=== PATIENT | female | born 1945 | race African-American/Black ===

== ENCOUNTER 2020-03-23 14:47 | Emergency (ER) | payer OTHER ==
[~2020-03-23] VITALS: Ht 167.6 cm; Wt 122.5 kg
[~2020-03-23 14:47] MED LIST: ACCUNEB SO1.25 MG/1; ACETAMINOP160 MG/12 PO; ACETAMINOPHEN325 MG; ASPIR 8181 MG; ATORVASTATIN CA40 MG PO; AUGMENTIN 875875 MG PO; CALCIUM 600 +1 EAC1; CATAPRES-TTS 20.2 MG TRANSDERM; CATAPRESS3; COLACE 100 MG100 MG PO; COUMADIN7.5 MG; DUONEB 2.5-0.5 M3 ML INH; FAMOTIDINE10 MG/1 ML IV; FLONASE 0.05%50 MCG; IRON325; KEPPRA 500 MG500 M1 PO; KLOR-CON 1010 MEQ; LABETALOL 100100 MG PO; LAMICTAL100 MG PO; LAMOTRIGINE100 MG PO; LASIX 20 MG TAB20 MG; LEXAPRO20 MG PO; LIPITOR 10 MG10 M1; LISINOPRIL20 MG PO; MILK OF MA2400 MG/10 PO; MOBIC15 MG PO; MUCINEX TA600 MG/TA2 PO; MULTIVITAMINS; NATURAL BALANCE15 ML; NORVASC5 MG PO; NOVOLOG100 UNIT/1 SUBQ; OMEGA-31000 M1; ONDANSETRON HCL4 M2 IV; OXYCODONE HCL 55 MG; PRILOSEC20 MG; SENEXON8.6 MG; VITAMIN C500 M1; ZOLOFT50 MG; ZYPREXA 5 MG TAB5 M1 PO; ZYRTEC10 MG
[2020-03-23 16:58] LABS: ABSOLUTE NEUTROPHILS 4.5 thou/uL (1.4-8.2); BASOPHILS 0.5 % (0.0-2.0); EOSINOPHILS 4.8 % (0.0-3.0); HEMATOCRIT 40.8 % (37.0-47.0); HEMOGLOBIN 13.8 gm/dL (12.0-15.0); LYMPHOCYTES 46.3 % (24.0-44.0); MCH 31.2 pg (26.0-34.0); MCHC 33.8 g/dL (28.0-37.0); MCV 92.3 fL (80.0-100.0); MONOCYTES 10.6 % (1.0-8.0); PLATELET COUNT 176 thou/uL (150-400); POLYS 37.8 % (36.0-66.0); RBC 4.42 mil/uL (4.20-5.00); RDW 14.3 % (10.5-14.5); WBC 11.9 thou/uL (4.0-11.0)
[2020-03-23 17:07] LABS: CALCIUM 8.7 mg/dL (8.5-10.1); CREATININE 1.1 mg/dL (0.6-1.0); POTASSIUM 4.1 mmol/L (3.5-5.1)
[2020-03-23 18:19] LABS: APTT 25.4 Seconds (24.5-32.8); INR 1.1; PROTIME 10.9 Seconds (9.3-11.4)
[2020-03-23] MEDS ORDERED: KEFLEX500 M1 PO (20:06)
[2020-03-23 21:00] VITALS: BP 128/80
== END 2020-03-23 23:30 | disposition home or self-care (01) ==
LOC: ER 14:47
PROVIDERS: Emergency Medicine
DX: N93.9 Abnormal uterine and vaginal bleeding, unspecified (principal); I10 Essential (primary) hypertension; E11.9 Type 2 diabetes mellitus without complications; J44.9 Chronic obstructive pulmonary disease, unspecified; Z86.2 Personal history of diseases of the blood and blood-forming organs and certain disorders involving the immune mechanism; Z86.73 Personal history of transient ischemic attack (TIA), and cerebral infarction without residual deficits; Z79.4 Long term (current) use of insulin; Z79.899 Other long term (current) drug therapy

== ENCOUNTER 2020-09-12 23:21 | Emergency (ER) | payer OTHER ==
[~2020-09-12] VITALS: Ht 162.6 cm; Wt 90.7 kg
[~2020-09-12 23:21] MED LIST changes: +KEFLEX500 M1 PO; -LIPITOR 10 MG10 M1; +LIPITOR 10 MG10 M1 PO
[2020-09-13 01:17] LABS: ABSOLUTE NEUTROPHILS 3.5 thou/uL (1.4-8.2); BASOPHILS 0.6 % (0.0-2.0); EOSINOPHILS 0.5 % (0.0-3.0); HEMATOCRIT 38.4 % (37.0-47.0); HEMOGLOBIN 12.9 gm/dL (12.0-15.0); LYMPHOCYTES 43.3 % (24.0-44.0); MCHC 33.7 g/dL (28.0-37.0); MCV 92.1 fL (80.0-100.0); MONOCYTES 9.1 % (1.0-8.0); PLATELET COUNT 106 thou/uL (150-400); POLYS 46.5 % (36.0-66.0); RBC 4.17 mil/uL (4.20-5.00); RDW 14.7 % (10.5-14.5); WBC 7.5 thou/uL (4.0-11.0)
[2020-09-13 01:25] LABS: CALCIUM 7.9 mg/dL (8.5-10.1); CREATININE 1.2 mg/dL (0.6-1.0); POTASSIUM 3.4 mmol/L (3.5-5.1)
[2020-09-13 01:35] LABS: ALBUMIN 2.2 g/dL (3.4-5.0); DIRECT BILIRUBIN 0.4 mg/dL (<0.1-0.2); MAGNESIUM 1.9 mg/dL (1.8-2.4); TOTAL BILIRUBIN 0.7 mg/dL (0.2-1.0); TOTAL PROTEIN 8.1 g/dL (6.4-8.2); TROPONIN-I 0.34 ng/mL (<0.06)
[2020-09-13 02:15] LABS: LARGE PLATELETS OCCASIONAL
[2020-09-13] MEDS ORDERED: TYLENOL325 M1 PO (02:47)
[2020-09-13] MEDS ORDERED: MACROBID 100 M100 M1 PO (02:47)
[2020-09-13 04:00] VITALS: BP 143/76
[2020-09-13] MEDS ORDERED: VITAMIN C500 M2 PO (07:47)
[2020-09-13] MEDS ORDERED: LO-DOSE ASPIRIN81 M1 PO (07:47)
[2020-09-13] MEDS ORDERED: BAMLANIVIMAB IV (07:50)
[2020-09-13] MEDS ORDERED: COZAAR 25 MG TA25 M2 PO (07:51)
[2020-09-13] MEDS ORDERED: VITAMIN D3100 MCG PO (07:51)
[2020-09-13] MEDS ORDERED: DEPAKOTE500 MG PO (07:52)
[2020-09-13] MEDS ORDERED: FIBERCON625 M1 PO (07:53)
[2020-09-13] MEDS ORDERED: MEGESTROL ACETA40 MG PO (07:54)
[2020-09-13] MEDS ORDERED: MILK OF MA400 MG/5 M PO (07:55)
[2020-09-13] MEDS ORDERED: SUPER THERAVIT1 EACH PO (07:55)
[2020-09-13] MEDS ORDERED: FIBERCON625 MG PO (07:57)
[2020-09-13] MEDS ORDERED: NUEDEXTA 20-101 EACH PO (07:59)
[2020-09-13] MEDS ORDERED: ORAZINC50 MG PO (08:00)
--- NOTE | 2020-09-14 07:22 | EKG ---
[place] [address] [facility] [place] [address] ELECTROCARDIOGRAM REPORT Name: OLGA FIGUEROA [id number] Admission: 09/12/20 Attend Phys: Discharge: 09/13/20 Date of : 47 Report #: [id number] [facility] ED Test Date: 2020-09-13 Test Time: 01:40:24 Pat Name: OLGA FIGUEROA Department: Room: Gender: F Help Desk Analyst: unknown : 1945 Requested By: Horace Alonso Order Number: [id number] MD: Rosalio Pulido Measurements Intervals [place] Rate: 78 P: KS: QRS: -13 QRSD: 85 T: 132 QT: 418 QTc: 477 Interpretive Statements NSR Abnormal R-wave progression, early transition Nonspecific T abnormalities, lateral leads Compared to ECG 03/10/2015 12:13:26 Sinus tachycardia no longer present Possible ischemia no longer present T-wave abnormality still present Electronically Signed On 09-14-2020 7:22:40 CDT by Rosalio Pulido [email or web address] <ELECTRONICALLY SIGNED> By: Rosalio Pulido MD, [facility] 09/14/20 0722 0140 [id number] Rosalio Pulido MD, [facility] /EPI
== END 2020-09-13 04:30 | disposition home or self-care (01) ==
LOC: ER 23:21
PROVIDERS: Emergency Medicine
DX: U07.1 COVID-19 (principal); R50.9 Fever, unspecified; R78.81 Bacteremia; R77.8 Other specified abnormalities of plasma proteins; D25.9 Leiomyoma of uterus, unspecified; E11.9 Type 2 diabetes mellitus without complications; I10 Essential (primary) hypertension; J44.9 Chronic obstructive pulmonary disease, unspecified; Z86.2 Personal history of diseases of the blood and blood-forming organs and certain disorders involving the immune mechanism; Z79.899 Other long term (current) drug therapy

== ENCOUNTER 2020-09-13 06:45 | Inpatient (IN) | payer OTHER ==
[2020-09-13] VITALS (7 sets, daily range): BP systolic 110–178; BP diastolic 60–98
[~2020-09-13] VITALS: Ht 167.6 cm; Wt 95.1 kg
[~2020-09-13 06:45] MED LIST changes: +MACROBID 100 M100 M1 PO; +TYLENOL325 M1 PO
--- NOTE | 2020-09-13 07:37 | NUR ---
DAUGHTER GRISEL CALLED, UPSET ABOUT DISCHARGE, FELT SHE NEEDED TO STAY LONGER SISTER EMERSON CALLED, TALKED WITH HER, SHE REQUESTS THAT WE KEEP HER HERE FOR OBSERVATION WILL PASS THIS ON TO PHYSICIAN
[2020-09-13] MEDS ORDERED: VITAMIN C500 M2 PO (07:47)
[2020-09-13] MEDS ORDERED: LO-DOSE ASPIRIN81 M1 PO (07:47)
[2020-09-13] MEDS ORDERED: BAMLANIVIMAB IV (07:50)
[2020-09-13] MEDS ORDERED: VITAMIN D3100 MCG PO (07:51)
[2020-09-13] MEDS ORDERED: COZAAR 25 MG TA25 M2 PO (07:51)
[2020-09-13] MEDS ORDERED: DEPAKOTE500 MG PO (07:52)
[2020-09-13] MEDS ORDERED: FIBERCON625 M1 PO (07:53)
[2020-09-13] MEDS ORDERED: MEGESTROL ACETA40 MG PO (07:54)
[2020-09-13] MEDS ORDERED: SUPER THERAVIT1 EACH PO (07:55)
[2020-09-13] MEDS ORDERED: MILK OF MA400 MG/5 M PO (07:55)
[2020-09-13] MEDS ORDERED: FIBERCON625 MG PO (07:57)
[2020-09-13] MEDS ORDERED: NUEDEXTA 20-101 EACH PO (07:59)
[2020-09-13] MEDS ORDERED: ORAZINC50 MG PO (08:00)
--- NOTE | 2020-09-13 14:09 | NUR ---
THIS RN SPOKE TO PT SISTER, EMERSON. FAMILY STATES THEY ARE UNHAPPY THAT THE PT HAS COVID. SHE FURTHER STATES SHE WANTS TO KNOW WHO GAVE IT TO HER AND WHEN. THIS RN PROVIDED IT IS VIRTUALLY IMPOSSIBLE TO KNOW WHO AND WHEN SHE WAS EXPOSED. THIS RN FURTHER EXPLAINED HAVING ONE DOSE OF THE VACCINATION IS NOT ENOUGH TO PROVIDE IMMUNIZATION AGAINST COVID. THE SISTER STATED THEY HAVE NOT DECIDED IF THEY ARE OK WITH PT RETURNING TO [facility]. THEY WILL MAKE A DECISION BY TOMORROW.
--- NOTE | 2020-09-13 18:28 | NUR ---
ASSUMED PT CARE AFTER OBS ADMIT FROM ED. PT HAS SLOWLY BEEN TALKING MORE IN ONE TO TWO WORD SENTENCES. PT NOW HAS PUREWICK PLACED FOR INCONTENENCE. ORANGE TINGED URINE VISIBLE IN SUCTION. PT HAD SCANT AMOUNT OF BLOOD/BM IN BRIEF UPON ARRIVAL TO UNIT EARLIER THIS AFTERNOON. DR CLARKE DENIED NEED FOR OCCULT BLOOD. NS INFUSING AT 75ML/HR. PT NOW RESTING IN BED AFTER EATING 50% OF DINNER.
--- NOTE | 2020-09-14 04:22 | NUR ---
PROGRESS PT ALERT ORIENTED TO SELF AND STAFF. VSS, ON 3 LITERS O2 LUNGS SOUNDS DIMINISHED. NO RESPIRATORY PROBLEMS NOTED RESPIRATIONS QUIET AND EASY. HAD A SLIGHT TEMP OF 99.2, ACCUCHECK 124 WITH NO SSI REQUIRED. TOLERATED NECTAR THICK LIQUIDS AND PUREED DIET PT HAS HISTORY OF DYSPHAGIA AND EATS A PUREED DIET WITH THICKENED LIQUIDS AT HOME. HAS A PUREWICK CATHETER IN PLACE DRAINED 400 CC OF ORANGE TINGED URINE, FAMILY STATES PT HAS A UTI AND HAS HAD BLOODY URINE SINCE ONSET. FAMILY EDUCATED ON COVID S/S AND OF VACCINE.
[2020-09-14 04:36] VITALS: BP 119/58
[2020-09-14 05:07] LABS: HEMATOCRIT 39.3 % (37.0-47.0); HEMOGLOBIN 12.9 gm/dL (12.0-15.0); MCH 30.8 pg (26.0-34.0); MCHC 32.9 g/dL (28.0-37.0); MCV 93.5 fL (80.0-100.0); RBC 4.2 mil/uL (4.20-5.00); WBC 6.9 thou/uL (4.0-11.0)
[2020-09-14 05:18] LABS: CALCIUM 7.9 mg/dL (8.5-10.1); POTASSIUM 3.7 mmol/L (3.5-5.1)
[2020-09-14 07:33] VITALS: BP 119/58
--- NOTE | 2020-09-14 09:00 | NUR ---
ASSUMED PT CARE AT SHIFT CHANGE. PT SLEEPING SOUNDLY AT BEGINNING OF SHIFT, PT NOW IS FOLLOWING COMMANDS AT A SLOW PACE, BUT REFUSING TO OPEN HER EYES. PT WAS ABLE TO SWALLOW MEDS IN APPLESAUCE WELL TAKE SIPS OF NECTAR THICK LIQUID.
--- NOTE | 2020-09-14 10:05 | NUR ---
PT ALERT AND AWAKE. NOW OPENS BOTH EYES WHEN ASKED. PT ATE BREAKFAST, WOUND CARE APPLIED ZGUARD/PROVIDED Q2H TURN ENCOURAGEMENT, PUREWICK CHANGED AND KANDICE CARE PROVIDED.
--- NOTE | 2020-09-14 11:39 | NUR ---
WOUND CONSULT; THE SACRUM WAS ASSESSED. IT IS LIKELY A SCARRED AREA OF PREVIOUS INJURY. NO DRAINAGE WAS SEEN. NO S/S OF INFECTION. RECOMMENDATIONS; -LOW AIR LOSS BED PUMP. -Q2H TURNING. -ZBUARD BID/PRN. DISCUSSED WITH LA
--- NOTE | 2020-09-14 16:20 | NUR ---
INITIAL ASSESSMENT: Received consult. VIKI reviewed chart and spoke with nursing and attending physician. Pt was admitted from [facility] due to shortness of breath. Pt has tested positive for COVID. Pt placed in Enhanced Isolation. Pt is afebrile and on 3L of O2. VIKI spoke with Ar in admissions at [facility] who states that pt has not had the COVID vaccine. Pt's family declined the vaccine. VIKI faxed clinical/thearpy info to [facility] for review. VIKI left voice message for pt's sister, Chelsea, to discuss discharge plan. The facility has also reached out to pt's family. VIKI is following to assist as needed with discharge planning.
[2020-09-14 19:56] VITALS: BP 121/55
[2020-09-15 05:07] VITALS: BP 158/87
--- NOTE | 2020-09-15 06:36 | NUR ---
LOW LOSS PUMP ON BED AND FUNCTIONING. Q2 TURNS. IVF GTT PER POC. 3L 02 PER NC. ISOLATION PRECAUTIONS AND FALL PRECAUTIONS IN PLACE.
[2020-09-15 07:50] VITALS: BP 158/87
[2020-09-15 09:30] LABS: BE(vivo) -3.7 mmol/L (-2 to +3); HCO3 21.3 mmol/L (22.0-26.0); PCO2 38.7 mmHg (35.0-45.0); PO2 76.1 mmHg (80.0-100.0); pH 7.359 (7.360-7.450); sO2 94.8 % (92.0-98.0)
[2020-09-15 09:37] LABS: HEMATOCRIT 40.5 % (37.0-47.0); HEMOGLOBIN 13.3 gm/dL (12.0-15.0); MCH 30.7 pg (26.0-34.0); MCHC 32.8 g/dL (28.0-37.0); MCV 93.7 fL (80.0-100.0); RBC 4.32 mil/uL (4.20-5.00); RDW 15.2 % (10.5-14.5); WBC 7.9 thou/uL (4.0-11.0)
[2020-09-15 09:48] LABS: CALCIUM 7.9 mg/dL (8.5-10.1); CREATININE 0.9 mg/dL (0.6-1.0); POTASSIUM 3.5 mmol/L (3.5-5.1)
[2020-09-15 11:34] VITALS: BP 123/82
[2020-09-15 12:04] LABS: URINE BILIRUBIN NEGATIVE (Negative); URINE BLOOD 3+ (Negative); URINE CLARITY SL CLOUDY; URINE COLOR YELLOW; URINE GLUCOSE-RANDOM* NEGATIVE (Negative); URINE KETONES NEGATIVE (Negative); URINE PROTEIN (DIPSTICK) 1+ (Negative)
[2020-09-15 12:05] LABS: URINE LEUKOCYTES-REFLEX 3+ (Negative); URINE NITRITE-REFLEX POSITIVE (Negative)
[2020-09-15 12:14] LABS: SQUAMOUS 0-3 Few /LPF (0-3); WBC CLUMPS Moderate (None Seen)
[2020-09-15 12:15] LABS: BACTERIA-REFLEX >30 Many /HPF (None Seen); CRYSTALS None Seen /LPF (None Seen); URINE RBC >20 Many /HPF (0-2); URINE WBC-REFLEX >25 Many /HPF (0-5)
[2020-09-15 12:16] LABS: CASTS None Seen /LPF (None Seen)
[2020-09-15 14:48] VITALS: BP 134/86
--- NOTE | 2020-09-15 15:41 | NUR ---
VIKI reviewed chart and spoke with nursing and attending physician. Pt remains in Enhanced Isolation due to COVID. Pt is on 3L of O2. VIKI contacted Angelique in admissions at [facility] to clarify pt's COVID vaccine status. Pt has not had the COVID vaccine at this time. This information provided to attending physician. Pulm consulted. VIKI spoke with pt's sister/DPOA, Chelsea, to provide update and follow up. Pt's sister was unaware that pt had "declined" the vaccine at the facility, and requests an update from the physician regarding her status and prognosis. Pt's sister requests to speak with staff at [facility] regarding pt being COVID positive, as they recently visited pt last week. VIKI provided contact info to both the attending physician and Angelique at [facility] for follow up. Copy of [facility] ppwk placed on pt's chart. VIKI is following to assist as needed with discharge planning.
[2020-09-15 20:18] VITALS: BP 132/81
--- NOTE | 2020-09-15 23:42 | NUR ---
ER CALLED BY DONNA IN LAB RE POSITIVE BLOOD CULTURE. WHEN I LOOKED UP PT TO CHART CRITICAL LAB FOUND THAT PT WAS STILL INPT. NOTIFIED STAFF ON 3W OF POSITIVE BLOOD CULTURE WITH GRAM POSITIVE COCCI
[2020-09-16 03:34] VITALS: BP 137/85
--- NOTE | 2020-09-16 06:46 | NUR ---
PT MAKING PROGRESS TOWARDS GOALS. LUNGS DIMINISHED THROUGHOUT. NOTED PERIODS OF TACHYPNEA WITH RR AROUND 22-24 BPM. RATE NOTED TO INCREASE WITH CARES/TURNS BEING DONE. PT DENIED FEELING SOA, DENIED ANY PAIN. CONTINUE TO MONITOR.
[2020-09-16 07:19] LABS: ALBUMIN 1.9 g/dL (3.4-5.0); CREATININE 0.9 mg/dL (0.6-1.0); DIRECT BILIRUBIN 0.3 mg/dL (<0.1-0.2); TOTAL BILIRUBIN 0.6 mg/dL (0.2-1.0); TOTAL PROTEIN 7.7 g/dL (6.4-8.2)
[2020-09-16 07:52] VITALS: BP 131/72
--- NOTE | 2020-09-16 09:30 | NUR ---
WOUND CARE F/U; THE WOUND IS STABLE. NO OTHER ISSUES. CURRENTLY, THE AREA IS BEING OFFLOADED WITH A LOW AIR LOSS BED PUMP AND PILLOWS WITH TURNING Q2H. RECOMMENDATIONS; NO CHANGES NEEDED AT THIS TIME.
[2020-09-16 11:00] VITALS: BP 155/88
--- NOTE | 2020-09-16 14:56 | NUR ---
VIKI reviewed chart and spoke with nursing and attending physician. Pt remains in Enhanced Isolation due to COVID. Pt is afebrile and on 3L of O2. Pt is on IV steroids and has been started on Remdesivir and Ivermectin. VIKI updated Angelique at [facility]. Pt will return using her skilled benefit. estate planner to fax updates to the facility for review. VIKI is following to assist as needed with discharge planning.
[2020-09-16 15:25] VITALS: BP 154/95
--- NOTE | 2020-09-16 16:16 | NUR ---
FAXED CLINICAL UPDATE TO [facility] RECEIVED CONFIRMATION.
--- NOTE | 2020-09-16 17:50 | NUR ---
ASSUMED PATIENT CARE AT 0700. ALERT. AFEBRIKE. VSS. ASSISTED PATIENT TURN. SLOWLY TOWARDS POC GOALS.
[2020-09-16 19:53] VITALS: BP 167/76
[2020-09-17 03:15] VITALS: BP 135/90
[2020-09-17 05:07] LABS: HEMATOCRIT 39.4 % (37.0-47.0); HEMOGLOBIN 12.8 gm/dL (12.0-15.0); MCH 30.5 pg (26.0-34.0); MCHC 32.4 g/dL (28.0-37.0); MCV 94.1 fL (80.0-100.0); RBC 4.19 mil/uL (4.20-5.00); RDW 14.8 % (10.5-14.5); WBC 11.5 thou/uL (4.0-11.0)
[2020-09-17 05:46] LABS: ALBUMIN 2.1 g/dL (3.4-5.0); CALCIUM 8.4 mg/dL (8.5-10.1); DIRECT BILIRUBIN 0.2 mg/dL (<0.1-0.2); MAGNESIUM 1.8 mg/dL (1.8-2.4); POTASSIUM 4.1 mmol/L (3.5-5.1); TOTAL BILIRUBIN 0.5 mg/dL (0.2-1.0); TOTAL PROTEIN 8.2 g/dL (6.4-8.2)
[2020-09-17 07:34] VITALS: BP 131/90
--- NOTE | 2020-09-17 07:39 | NUR ---
PT MAKING PROGRESS TOWARD GOALS. ON ROOM AIR THROUGHOUT THE NIGHT. DENIED ANY SOA. LUNGS DIMINISHED THROUGHOUT. NO COMPLAINTS VOICED.
--- NOTE | 2020-09-17 13:39 | NUR ---
[facility] meeting reported tenative dc on Wednesday 09/20. Updated [facility] they reports Rn DIrector and General director has spoken with family regarding timing of their visit prior to COVID positive result. If dc over weekend call Angelique at [facility] cell [phone] Fax orders to [phone]. Obtain chart copy. If need to arrange transport call [facility] [phone]. Notify family.
--- NOTE | 2020-09-17 14:26 | NUR ---
FAXED CLINICAL UPDATES AND POSITIVE COVID RESULT (09/13/20) TO [facility] P [phone]; FAX [phone]
[2020-09-17 16:07] VITALS: BP 117/78
--- NOTE | 2020-09-17 18:19 | NUR ---
ASSUMED PATIENT CARE AT 0700. TOLOERATED ON RA. SOB WITH EXERTION. SLOWLY TOWARDS POC GOALS.
[2020-09-17 19:34] VITALS: BP 146/86
--- NOTE | 2020-09-17 21:02 | NUR ---
PT RESTING IN BED SEMI FOWLERS POSITON. LUNGS DIMINISHED, COUGH, HR DISTANT, BS DECREASED. PT IS OBESE. RR WNL. PT REQUESTING FLUIDS OFTEN, CLEAR SPEECH, APHASIC. PURWICK INTACT. STAFF TO REPOSITION PT. BED ALARM ON.
[2020-09-18 03:50] LABS: ALBUMIN 1.7 g/dL (3.4-5.0); CREATININE 0.9 mg/dL (0.6-1.0); SGOT 28 U/L (15-37); SGPT 22 U/L (30-65); TOTAL BILIRUBIN 0.8 mg/dL (0.2-1.0); TOTAL PROTEIN 8.3 g/dL (6.4-8.2)
[2020-09-18 04:12] LABS: DIRECT BILIRUBIN < 0.1 mg/dL (<0.1-0.2)
[2020-09-18 05:15] VITALS: BP 138/94
[2020-09-18 07:04] VITALS: BP 140/101
--- NOTE | 2020-09-18 12:12 | NUR ---
VIKI reviewed chart and spoke with nursing and attending physician. Pt remains in Enhanced Isolation due to COVID. Pt is afebrile and not requiring O2. Pt is on IV abx and IV steroids. Pt to complete course of Remdesivir tomorrow. Anticipate pt will be ready for discharge back to [facility] over the weekend. VIKI updated Angelique in admissions at [facility], who confirms they are able to accept pt back over the weekend. VIKI spoke with pt's sister/DPOA, Chelsea, via phone to provide update and notify of anticipated discharge over the weekend. Pt's sister is aware and agreeable with discharge plan. Pt's sister requested medical update. SW encouraged pt to contact pt's nurse. Finalized discharge orders/summary will need to be faxed to the nursing facility when available. Nursing to contact [facility], who will be on-call for admissions over the weekend. Chart copy will be needed. Pt's sister/DPOA, Chelsea, to be notified of discharge arrangements. VIKI is following and is available to assist as needed. [facility]-- Angelique (Admissions liaison: [phone]
[2020-09-18 15:14] VITALS: BP 133/81
--- NOTE | 2020-09-18 19:14 | NUR ---
ASSUMED PATIENT CARE AT 0700, A/O X2. TOLERATED ON RA. GOOD APPETITE. VSS. NO BLEEDING NOTED IN PASS THREE DAYS. UPDATE WITH SISTER. PROGRESSING TOWARDS POC GOALS.
[2020-09-18 20:00] VITALS: BP 130/78
--- NOTE | 2020-09-19 02:21 | NUR ---
TURNS SIDE TO SIDE Q 2 HOURS. RELAX AND RESTING QUIETLY. TAKES PO NECTAR THICK LIQUIDS EASILY. EXTERNAL CATHETER CATCHING URINE.
[2020-09-19 04:06] VITALS: BP 118/93
[2020-09-19 05:30] LABS: ALBUMIN 2.2 g/dL (3.4-5.0); CREATININE 1.2 mg/dL (0.6-1.0); DIRECT BILIRUBIN 0.3 mg/dL (<0.1-0.2); TOTAL BILIRUBIN 0.7 mg/dL (0.2-1.0); TOTAL PROTEIN 8.1 g/dL (6.4-8.2)
[2020-09-19 07:22] VITALS: BP 111/85
[2020-09-19 09:16] LABS: HEMATOCRIT 42.5 % (37.0-47.0); HEMOGLOBIN 14.4 gm/dL (12.0-15.0); MCH 31.2 pg (26.0-34.0); MCV 91.9 fL (80.0-100.0); RBC 4.62 mil/uL (4.20-5.00); RDW 14.2 % (10.5-14.5); WBC 11.5 thou/uL (4.0-11.0)
[2020-09-19 09:25] LABS: CALCIUM 8.8 mg/dL (8.5-10.1); CREATININE 1.2 mg/dL (0.6-1.0); MAGNESIUM 2.1 mg/dL (1.8-2.4); POTASSIUM 3.9 mmol/L (3.5-5.1)
[2020-09-19 09:48] VITALS: BP 111/85
[2020-09-19] MEDS ORDERED: PEPCID20 MG PO (11:45)
[2020-09-19] MEDS ORDERED: PREDNISONE 20 M20 M1 PO (11:45)
[2020-09-19] MEDS ORDERED: AMOX TR-K CLV1 EAC4 PO (11:45)
--- NOTE | 2020-09-19 14:00 | NUR ---
ASSUMED PATIENT CARE AT 0700. ALERT. TOLERATED ON RA. ASSISTED WITH EATTING. UPDATE WITH DPOA AND PATIENTS SON. FAXED DC ORDER TO [facility]. THEY WILL PICK PT UP AT 1600. PROGRESSING TOWARDS POC GOALS.
== END 2020-09-19 16:58 | DRG 871 ==
LOC: ER 06:45 → EROBS 08:14 → 3W 10:38
PROVIDERS: Internal Medicine; ADMIT Hospitalist; ATTEND Hospitalist
PROC: XW033E5 Introduction of Remdesivir Anti-infective into Peripheral Vein, Percutaneous Approach, New Technology Group 5 (ICD-10-PCS; principal; 2020-09-15)
DX: A41.51 Sepsis due to Escherichia coli [E. coli] (principal); U07.1 COVID-19; J96.01 Acute respiratory failure with hypoxia; J12.82 Pneumonia due to coronavirus disease 2019; I69.354 Hemiplegia and hemiparesis following cerebral infarction affecting left non-dominant side; N39.0 Urinary tract infection, site not specified; Z16.12 Extended spectrum beta lactamase (ESBL) resistance; J44.0 Chronic obstructive pulmonary disease with (acute) lower respiratory infection; E11.649 Type 2 diabetes mellitus with hypoglycemia without coma; I10 Essential (primary) hypertension; F03.90 Unspecified dementia, unspecified severity, without behavioral disturbance, psychotic disturbance, mood disturbance, and anxiety; F31.9 Bipolar disorder, unspecified; E66.01 Morbid (severe) obesity due to excess calories; K59.00 Constipation, unspecified; R53.81 Other malaise; Z66 Do not resuscitate; Z68.33 Body mass index [BMI] 33.0-33.9, adult; Z86.16 Personal history of COVID-19; Z79.899 Other long term (current) drug therapy
CPT/HCPCS: 10879

== ENCOUNTER 2020-09-27 10:36 | Emergency (ER) | payer OTHER ==
[~2020-09-27] VITALS: Ht 165.1 cm; Wt 90.7 kg
[~2020-09-27 10:36] MED LIST changes: +AMOX TR-K CLV1 EAC4 PO; +BAMLANIVIMAB IV; +COZAAR 25 MG TA25 M2 PO; +DEPAKOTE500 MG PO; +FIBERCON625 M1 PO; +FIBERCON625 MG PO; +LO-DOSE ASPIRIN81 M1 PO; +MEGESTROL ACETA40 MG PO; +MILK OF MA400 MG/5 M PO; +NUEDEXTA 20-101 EACH PO; +ORAZINC50 MG PO; +PEPCID20 MG PO; +PREDNISONE 20 M20 M1 PO; +SUPER THERAVIT1 EACH PO; +VITAMIN C500 M2 PO; +VITAMIN D3100 MCG PO
[2020-09-27 10:37] VITALS: BP 121/85
[2020-09-27 11:43] LABS: ABSOLUTE NEUTROPHILS 10.9 thou/uL (1.4-8.2); BASOPHILS 0.4 % (0.0-2.0); EOSINOPHILS 0.5 % (0.0-3.0); HEMATOCRIT 48.3 % (37.0-47.0); LYMPHOCYTES 28.3 % (24.0-44.0); MCH 30.5 pg (26.0-34.0); MCHC 33.1 g/dL (28.0-37.0); MCV 92.2 fL (80.0-100.0); MONOCYTES 14.3 % (1.0-8.0); PLATELET COUNT 143 thou/uL (150-400); POLYS 56.5 % (36.0-66.0); RBC 5.24 mil/uL (4.20-5.00); RDW 14.4 % (10.5-14.5); WBC 19.4 thou/uL (4.0-11.0)
[2020-09-27 11:45] LABS: CALCIUM 9.6 mg/dL (8.5-10.1); POTASSIUM 4.6 mmol/L (3.5-5.1)
[2020-09-27 11:55] LABS: ALBUMIN 2.3 g/dL (3.4-5.0); TOTAL BILIRUBIN 0.9 mg/dL (0.2-1.0)
[2020-09-27 11:58] LABS: TROPONIN-I 1.02 ng/mL (<0.06)
[2020-09-27 11:59] LABS: BE(vivo) -0.2 mmol/L (-2 to +3); HCO3 19.7 mmol/L (22.0-26.0); PCO2 22.9 mmHg (35.0-45.0); PO2 83.7 mmHg (80.0-100.0); pH 7.552 (7.360-7.450); sO2 97.5 % (92.0-98.0)
[2020-09-27 14:09] LABS: URINE BILIRUBIN NEGATIVE (Negative); URINE BLOOD 2+ (Negative); URINE CLARITY CLEAR; URINE COLOR YELLOW; URINE GLUCOSE-RANDOM* NEGATIVE (Negative); URINE KETONES TRACE (Negative); URINE NITRITE-REFLEX NEGATIVE (Negative); URINE PROTEIN (DIPSTICK) NEGATIVE (Negative)
[2020-09-27 14:13] LABS: URINE LEUKOCYTES-REFLEX 2+ (Negative)
[2020-09-27 14:16] LABS: URINE WBC-REFLEX 6-15 Few /HPF (0-5); WBC CLUMPS Few (None Seen)
[2020-09-27 14:17] LABS: CASTS None Seen /LPF (None Seen); CRYSTALS None Seen /LPF (None Seen); SQUAMOUS None Seen /LPF (0-3); URINE RBC 3-10 Few /HPF (0-2)
[2020-09-27 15:41] VITALS: BP 124/68
[2020-09-27 16:10] LABS: FOLIC ACID 18.5 ng/mL (8.6-58.9)
--- NOTE | 2020-09-29 09:23 | EKG ---
[facility] [place] [address] ELECTROCARDIOGRAM REPORT Name: OLGA FIGUEROA [id number] Admission: 09/27/20 Attend Phys: Discharge: 09/27/20 Date of : 47 Report #: [id number] [facility] ED Test Date: 2020-09-27 Test Time: 12:03:01 Pat Name: OLGA FIGUEROA Department: Room: 170 Gender: F Cook Larder: louann : 1945 Requested By: Rajendra Miguel Order Number: [id number] MD: Juanito Ca Measurements Intervals [place] Rate: 139 P: -89 NV: 128 QRS: -5 QRSD: 73 T: 154 QT: 329 QTc: 501 Interpretive Statements Sinus or ectopic atrial tachycardia ST and T wave abnormality Prolonged QT interval Baseline wander in lead(s) II,III,aVF Compared to ECG 09/13/2020 01:40:24 Prolonged QT interval now present Ectopic atrial tachycardia is now present Electronically Signed On 09-29-2020 9:22:53 CDT by Juanito Ca [email or web address] <ELECTRONICALLY SIGNED> By: Juanito Ca MD, FACC 09/29/20 0922 1203 1203 Juanito Ca MD, MERGED WITH [facility] /EPI
== END 2020-09-27 16:42 ==
LOC: ER 10:36 → EROBS 15:03 → ER 15:03
PROVIDERS: Emergency Medicine Emergency Medical Services; Hospitalist
DX: U07.1 COVID-19 (principal); R41.82 Altered mental status, unspecified; R06.03 Acute respiratory distress; R79.89 Other specified abnormal findings of blood chemistry; E66.9 Obesity, unspecified; E11.9 Type 2 diabetes mellitus without complications; J44.9 Chronic obstructive pulmonary disease, unspecified; I10 Essential (primary) hypertension; Z88.0 Allergy status to penicillin; Z79.899 Other long term (current) drug therapy; Z79.82 Long term (current) use of aspirin; Z86.73 Personal history of transient ischemic attack (TIA), and cerebral infarction without residual deficits